=== PATIENT | male | born 1960 | race Caucasian/White ===

== ENCOUNTER → 2017-04-24 | Outpatient (CLI) | payer OTHER ==
[~2017-04-24] MED LIST: ALLEGRA ALLERGY60 MG PO; CENTRUM SILVER1 EAC2 PO; CYMBALTA60 MG PO; FELDENE20 MG PO; GLUCOSAMINE &1 EAC1 PO; IBUPROFEN 200200 M1 PO; KRILL OIL500 MG PO; LOSARTAN-HCTZ1 EAC2 PO; MAGNESIUM100 MG PO; PRILOSEC 10MG C10 M1 PO; SONATA5 M1 PO; SUDAFED 12 HOU120 MG PO; [UNRECOGNIZED DRUG - OTHER] PO
== END ==
LOC: RAD 16:51
DX: J18.9 Pneumonia, unspecified organism (principal); R06.00 Dyspnea, unspecified

== ENCOUNTER → 2018-04-29 | Outpatient (CLI) | payer OTHER | LOC: CAT 16:13 | DX: K57.30 Diverticulosis of large intestine without perforation or abscess without bleeding (principal); N20.2 Calculus of kidney with calculus of ureter; R35.0 Frequency of micturition; I10 Essential (primary) hypertension; J45.909 Unspecified asthma, uncomplicated; K21.9 Gastro-esophageal reflux disease without esophagitis; G47.33 Obstructive sleep apnea (adult) (pediatric); Z68.35 Body mass index [BMI] 35.0-35.9, adult ==

== ENCOUNTER 2019-08-28 06:53 | Day surgery (SDC) | payer BC ==
[~2019-08-28] VITALS: Ht 185.4 cm; Wt 122.5 kg
[~2019-08-28 06:53] MED LIST changes: +ASPIRIN325 PO; +DILTIAZEM ER180 M2 PO; +FLOMAX0.4 MG PO; +LOSARTAN-HCTZ1 EAC3 PO; +MYCOPHENOLATE500 MG PO; +PLAQUENIL200 MG PO; -PRILOSEC 10MG C10 M1 PO; +PRILOSEC10 MG PO; +THERA TEARS1 EACH OPHTHALMIC; +VITAMIN D310000 UNIT PO
[2019-08-28 08:10] VITALS: BP 133/90
--- NOTE | 2019-09-08 06:19 | O ---
[facility] Alexis [place] [facility] [place] [address] OPERATIVE REPORT Name: KAMDIOMEDES Mally Room #: DEP [facility]#: [id number] Admission: 08/28/19 Attend Phys: Wang Montez MD Discharge: 08/28/19 Date of : 64 Report #: [id number] THIS REPORT FOR: cc: Mike Bailey James A. DO White, William L. MD ~ THIS REPORT FOR: //name// CC: Trevon Reese DATE OF SERVICE: 08/28/2019 SURGEON: Wang Montez MD NURSING UNIT MANAGER: None. PREOPERATIVE DIAGNOSIS: Bilateral lower lid ectropion. POSTOPERATIVE DIAGNOSIS: Bilateral lower lid ectropion. OPERATION PERFORMED: Bilateral lower lid ectropion repair. ANESTHESIA: Local with IV sedation. COMPLICATIONS: None. INDICATIONS FOR PROCEDURE: This patient has bilateral acquired lower lid ectropion with chronic tearing, keratopathy and discharge. The current procedures are undertaken in order to improve the patient's visual function, lacrimal outflow, and level of comfort. Informed consent was obtained to include but not limit to the risk of loss of vision, bleeding, infection, scarring, failure to improve the problem and need for further surgery. DESCRIPTION OF OPERATION: The patient was taken to the operating room where 2% Xylocaine with epinephrine mixed with equal parts of 0.75% Marcaine with Wydase was administered transcutaneously and transconjunctivally to each lower lid and lateral canthal area. The patient was then prepped and draped in the usual sterile fashion. A Meghan clamp was then used to clamp the left lateral canthus following which a sharp canthotomy and cantholysis were performed. The tarsal strip was prepared laterally, removing the lash bearing portion of the redundant lid margin and the redundant tarsal plate. Hemostasis was achieved with a monopolar cautery, as it was throughout the case. The tarsal strip was then secured to the internal portion of the lateral orbital tubercle with two [facility] [address] [address] OPERATIVE REPORT Name: DIOMEDES HUMPHREY Room #: DEP [facility]..#: [id number] Admission: 08/28/19 Attend Phys: Wang Montez MD Discharge: 08/28/19 Date of : 64 Report #: [id number] interrupted 5-0 Prolene sutures. The lateral canthal angle was sharply reformed as the subcutaneous structures and the skin were closed with multiple interrupted 6-0 plain gut sutures. Attention was then turned to the right side where the same procedure was performed. The wounds were cleaned and dressed with ophthalmic antibiotic ointment. The patient was then transported to the recovery area, having tolerated the procedure well with no anesthetic or operative complications being noted. <ELECTRONICALLY SIGNED> By: Wang Montez MD 09/08/19 0619 [id number] MD stan Prather
== END 2019-08-28 10:47 | disposition home or self-care (01) ==
LOC: OR 06:53 → TBA 07:02 → OR 08:58
DX: H02.105 Unspecified ectropion of left lower eyelid (principal); H02.102 Unspecified ectropion of right lower eyelid; G47.30 Sleep apnea, unspecified; I10 Essential (primary) hypertension; I48.91 Unspecified atrial fibrillation; I48.92 Unspecified atrial flutter; K21.9 Gastro-esophageal reflux disease without esophagitis; Z98.890 Other specified postprocedural states; Z79.899 Other long term (current) drug therapy; Z87.442 Personal history of urinary calculi; Z87.19 Personal history of other diseases of the digestive system; Z87.891 Personal history of nicotine dependence; Z79.82 Long term (current) use of aspirin; Z87.01 Personal history of pneumonia (recurrent); Z87.09 Personal history of other diseases of the respiratory system; Z79.01 Long term (current) use of anticoagulants
CPT/HCPCS: 50010; 50101; 50386; 50398; 51636; 56527; 56531; 62110; 62850; 70005

== ENCOUNTER → 2019-12-30 | Outpatient (CLI) | payer BC | LOC: LAB 11:23 | PROVIDERS: ATTEND Student in an Organized Health Care Education/Training Program | DX: Z01.812 Encounter for preprocedural laboratory examination (principal); Z11.59 Encounter for screening for other viral diseases ==

== ENCOUNTER → 2020-01-01 | Outpatient (CLI) | payer BC ==
[~2020-01-01] VITALS: Ht 185.4 cm; Wt 122.5 kg
[2020-01-01 07:32] LABS: CALCIUM 8.9 mg/dL (8.5-10.1); POTASSIUM 3.5 mmol/L (3.5-5.1)
== END | disposition home or self-care (01) ==
LOC: LABMALL 06:12 → OR 06:12 → TBA 06:20 → OR 10:43 → EDSTATUS 11:04 → OR 16:42
PROVIDERS: Surgery Vascular Surgery; ATTEND Ophthalmology
DX: H02.9 Unspecified disorder of eyelid (principal); Z53.8 Procedure and treatment not carried out for other reasons; I10 Essential (primary) hypertension; I48.91 Unspecified atrial fibrillation; I48.92 Unspecified atrial flutter; G47.30 Sleep apnea, unspecified; Z98.890 Other specified postprocedural states; Z87.891 Personal history of nicotine dependence; Z79.899 Other long term (current) drug therapy; K21.9 Gastro-esophageal reflux disease without esophagitis; Z87.442 Personal history of urinary calculi

== ENCOUNTER → 2020-03-01 | Outpatient (CLI) | payer BC | LOC: LAB 09:00 | PROVIDERS: ATTEND Student in an Organized Health Care Education/Training Program | DX: Z01.812 Encounter for preprocedural laboratory examination (principal); Z20.828 Contact with and (suspected) exposure to other viral communicable diseases ==

== ENCOUNTER 2020-03-04 06:10 | Day surgery (SDC) | payer BC ==
[~2020-03-04] VITALS: Ht 185.4 cm; Wt 124.3 kg
[2020-03-04 07:52] VITALS: BP 136/78
--- NOTE | 2020-03-08 06:17 | O ---
[facility] [place] [address] OPERATIVE REPORT Name: DIOMEDES HUMPHREY Room #: DEP [facility]#: [id number] Admission: 03/04/20 Attend Phys: Wang Montez MD Discharge: 03/04/20 Date of : 64 Report #: [id number] THIS REPORT FOR: cc: Mike Bailey,Wang Crowell MD ~ CC: RYLEE Chisholm DATE OF SERVICE: 03/04/2020 SURGEON: Wang Montez MD BIOMEDICAL REPAIR TECHNICIAN: None. PREOPERATIVE DIAGNOSIS: Nasolacrimal duct obstruction, left sided. POSTOPERATIVE DIAGNOSIS: Nasolacrimal duct obstruction, left sided. OPERATIONS PERFORMED: 1. Incisional dacryocystorhinostomy. 2. Nasal surgical video endoscopy. 3. Silicone intubation. ANESTHESIA: General. COMPLICATIONS: None. INDICATIONS FOR PROCEDURE: This patient has an acquired nasolacrimal duct obstruction with chronic tearing and discharge. The current procedures are undertaken in order to improve the patient's level of comfort and visual clarity and to reduce the risk of recurrent infection. Informed consent was obtained to include but not limited to the potential risk for loss of vision, bleeding, infection, failure to improve the problem, scarring and the potential need for further surgery. DESCRIPTION OF OPERATION: The patient was taken to the operating room, where general anesthesia was administered. The medial canthal area was then generously infiltrated with 2% Xylocaine with epinephrine mixed with equal parts of 0.75% Marcaine with Wydase. The same anesthetic mixture was then used to anesthetize the lateral wall of the nose. The middle meatus was then packed with Afrin-soaked Cottonoids. The patient was subsequently prepped and draped in the usual sterile fashion. [address] [address] OPERATIVE REPORT Name: DIOMEDES HUMPHREY Room #: DEP [facility]#: [id number] Admission: 03/04/20 Attend Phys: Wang Montez MD Discharge: 03/04/20 Date of : 64 Report #: [id number] A skin-marking pen was then used to outline an incision over the anterior lacrimal crest inferiorly in the medial canthal area. The incision was then made with a 15 blade. The dissection was then carried down through the soft tissue until the periosteum was identified. Hemostasis was achieved with diligent monopolar cautery. The periosteum was then incised over the anterior lacrimal crest and then gently reflected laterally out of the lacrimal sac fossa. The lacrimal sac was retracted and the thin bone of the lacrimal sac fossa was gently infractured with a hemostat. Multiple rongeur bites were then used to create an osteotomy that was approximately 1.5 cm in diameter. The nasal mucosa was then injected with the same anesthetic mixture used at the beginning of the case. The nasal mucosa was then incised and an anteriorly hinged nasal mucosal flap made. The flap was drawn out of the field with interrupted 4-0 chromic sutures. The puncta were then dilated with a double-ended punctum dilator. Flores tubes were then passed into the lacrimal sac and its margins were identified. A large anteriorly hinged lacrimal sac flap was subsequently created. The Flores tubes were passed into the nose on a groove director transnasally. The anterior lacrimal sac flaps and nasal mucosal flaps were closed with interrupted 4-0 chromic sutures. The nasal surgical video endoscope was then brought into the field. The ostium was inspected and found to not be obstructed by the middle turbinate. The ostium was anterior and inferior to the root of the turbinate. There was no evidence of any septal obstruction of the newly created ostium. The subcutaneous structures around the wound were then closed with multiple interrupted 4-0 chromic sutures. The skin was closed with interrupted 6-0 plain gut sutures. The Flores tubes were then secured to themselves with 3 square throws. The Flores tubes were then secured to the lateral wall of the nose with a 5-0 Prolene suture. Antibiotic steroid drops were then placed on the surface of the eye and an antibiotic ointment on the incision. Two eye pads were then taped in place. The patient was transported to the recovery area, having tolerated the procedure well with no anesthetic or operative complications being noted. <ELECTRONICALLY SIGNED> By: Wang Montez MD 03/08/20 0617 08 5 Wang Montez MD /nt
== END 2020-03-04 09:15 | disposition home or self-care (01) ==
LOC: OR 06:10 → TBA 06:10 → OR 09:15
PROVIDERS: ATTEND Ophthalmology
DX: H04.552 Acquired stenosis of left nasolacrimal duct (principal); I10 Essential (primary) hypertension; G47.30 Sleep apnea, unspecified; J45.909 Unspecified asthma, uncomplicated; K21.9 Gastro-esophageal reflux disease without esophagitis; I48.91 Unspecified atrial fibrillation; Z79.899 Other long term (current) drug therapy; Z98.890 Other specified postprocedural states; Z87.891 Personal history of nicotine dependence
CPT/HCPCS: 50010; 50101; 50386; 50398; 51636; 51777; 56528; 56531; 62110; 62900; 64037; 70005

== ENCOUNTER 2021-06-07 08:28 | Emergency (ER) | payer BC ==
[~2021-06-07] VITALS: Ht 185.4 cm; Wt 111.1 kg
[2021-06-07] MEDS ORDERED: ATENOLOL 50MG T50 M1 PO (09:01)
[2021-06-07] MEDS ORDERED: TRAZODONE HCL100 MG PO (09:02)
[2021-06-07] MEDS ORDERED: ESZOPICLONE3 MG PO (09:02)
[2021-06-07 09:21] LABS: ABSOLUTE NEUTROPHILS 13.9 thou/uL (1.4-8.2); BASOPHILS 0.3 % (0.0-2.0); EOSINOPHILS 0.9 % (0.0-3.0); HEMATOCRIT 37.6 % (42.0-52.0); LYMPHOCYTES 5.9 % (24.0-44.0); MCH 32.6 pg (26.0-34.0); MCHC 34.4 g/dL (28.0-37.0); MCV 94.8 fL (80.0-100.0); PLATELET COUNT 293 thou/uL (150-400); POLYS 83.9 % (36.0-66.0); RBC 3.97 mil/uL (4.50-6.00); RDW 13.2 % (10.5-14.5); WBC 16.6 thou/uL (4.0-11.0)
[2021-06-07 09:25] LABS: CALCIUM 8.8 mg/dL (8.5-10.1); CREATININE 1.2 mg/dL (0.7-1.3)
[2021-06-07 09:30] LABS: ALBUMIN 3.4 g/dL (3.4-5.0); TOTAL BILIRUBIN 0.9 mg/dL (0.2-1.0); TOTAL PROTEIN 6.6 g/dL (6.4-8.2)
[2021-06-07 09:31] LABS: INR 1.06; PROTIME 11.5 Seconds (10.5-12.1)
[2021-06-07 09:32] LABS: LIPASE 112 U/L (73-393)
[2021-06-07 11:09] LABS: URINE BILIRUBIN NEGATIVE (Negative); URINE BLOOD NEGATIVE (Negative); URINE CLARITY CLEAR; URINE COLOR YELLOW; URINE GLUCOSE-RANDOM* NEGATIVE (Negative); URINE KETONES NEGATIVE (Negative); URINE LEUKOCYTES-REFLEX NEGATIVE (Negative); URINE NITRITE-REFLEX NEGATIVE (Negative); URINE PROTEIN (DIPSTICK) NEGATIVE (Negative); URINE UROBILINOGEN 0.2 E.U./dl (0.2-1.0)
[2021-06-07] MEDS ORDERED: AUGMENTIN 875-1 EACH PO (13:29)
[2021-06-07] MEDS ORDERED: ZOFRAN ODT4 MG PO (13:29)
[2021-06-07 13:33] VITALS: BP 114/73
--- NOTE | 2021-06-08 07:18 | EKG ---
[place] [address] [facility] [place] [address] ELECTROCARDIOGRAM REPORT Name: DIOMEDES HUMPHREY [id number] Admission: 06/07/21 Attend Phys: Discharge: 06/07/21 Date of : 64 Report #: [id number] [facility] ED Test Date: 2021-06-07 Test Time: 08:52:59 Pat Name: DIOMEDES HUMPHREY Department: Room: Gender: M Investment Professional: STACIE : 1960 Requested By: Everardo Templeton Order Number: [id number] MD: Catarino Villalobos Measurements Intervals Home Rate: 73 P: 22 CO: 188 QRS: -53 QRSD: 111 T: -17 QT: 414 QTc: 457 Interpretive Statements Sinus rhythm Abnormal R-wave progression, late transition Compared to ECG 11/13/2012 14:55:36 Incomplete right bundle-branch block now present Sinus tachycardia no longer present Electronically Signed On 06-08-2021 7:17:55 [place] [employer] by Catarino Villalobos [email or web address] <ELECTRONICALLY SIGNED> By: Catarino Villalobos MD, [facility] 06/08/21 0717 Catarino Villalobos MD, FAC /EPI
== END 2021-06-07 13:42 | disposition home or self-care (01) ==
LOC: ER 08:28
PROVIDERS: Emergency Medicine
DX: K57.92 Diverticulitis of intestine, part unspecified, without perforation or abscess without bleeding (principal); K21.9 Gastro-esophageal reflux disease without esophagitis; I10 Essential (primary) hypertension; G47.30 Sleep apnea, unspecified; Z79.899 Other long term (current) drug therapy